=== PATIENT | male | born 1950 ===

== ENCOUNTER 2021-07-16 21:05 | Inpatient (IN) | payer OTHER, MEDICARE ==
[~2021-07-16] VITALS: Ht 172.7 cm; Wt 88.2 kg
[2021-07-16 22:13] LABS: BASO % 0.2 % (0.0-2.0); GRAN # 3.3 K/mm3 (1.4-6.5); GRAN % 76.6 % (42.2-75.2); HEMOGLOBIN 14.8 g/dl (13.5-18.0); LYMPH # 0.6 K/mm3 (1.2-3.4); LYMPH % 12.9 % (20.0-51.0); MEAN CELL VOLUME 87 fl (80.0-100.0); MEAN CORPUSCULAR HEMOGLOBIN 30 pg (27-31); MEAN CORPUSCULAR HGB CONC 34 g/dl (33.0-37.0); MEAN PLATELET VOLUME 10.9 fl (7.4-10.4); MONO # 0.4 K/mm3 (0.1-0.6); MONO % 9.8 % (1.7-9.3); PLATELET COUNT 101 K/mm3 (130-400); RED BLOOD COUNT 4.93 M/mm3 (4.20-5.60); REDCELL DISTRIBUTION WIDTH-CV 12.1 % (11.5-14.5)
[2021-07-16 22:39] LABS: ALANINE AMINOTRANSFERASE 10 U/L (0-55); ALBUMIN 3.7 gm/dL (3.4-4.8); ALKALINE PHOSPHATASE 63 U/L (40-150); ANION GAP 12 mmol/L (7-16); AST,SGOT 21 U/L (5-34); BILIRUBIN,TOTAL 0.9 mg/dL (0.2-1.2); BLOOD UREA NITROGEN 12 mg/dL (8-26); CALCIUM 10.5 mg/dL (8.4-10.2); CARBON DIOXIDE 21 mmol/L (23-31); CHLORIDE 101 mmol/L (98-107); CREATININE, serum 1.23 mg/dL (0.72-1.25); GLUCOSE 193 mg/dL (70-99); LIPASE 36 U/L (8-78); POTASSIUM 3.9 mmol/L (3.5-4.5); SODIUM 134 mmol/L (136-145); TOTAL PROTEIN 7.6 gm/dL (6.2-8.1)
[2021-07-16 22:42] LABS: TROPONIN-I < 0.010 ng/mL (0.00-0.033)
[2021-07-17 02:31] LABS: COLLECTION METHOD CLEAN CATCH
[2021-07-17 02:43] LABS: MUCOUS Present (NOT PRESENT); PH 5 (5-8); SQUAMOUS EPITHELIAL 0-2 /hpf (0-10); URINE APPEARANCE Clear (CLEAR/HAZY); URINE BACTERIA None Seen /hpf (NONE SEEN); URINE BILIRUBIN Negative (NEGATIVE); URINE BLOOD Negative (NEGATIVE); URINE COLOR Yellow (YELLOW); URINE GLUCOSE Negative (NEGATIVE); URINE KETONE 1+ (NEGATIVE); URINE LEUKOCYTE ESTERASE Negative (NEGATIVE); URINE NITRATE Negative (NEGATIVE); URINE PROTEIN(semi-quant) 1+ (NEGATIVE); URINE RBC 0-2 /hpf (0-2); URINE UROBILINOGEN >=4.0 (NEGATIVE)
[2021-07-17 02:48] LABS: ARTERIAL BLD GAS TCO2 CT 28.2; ARTERIAL BLOOD GAS BASE EXCESS 2.4 (-2-2); ARTERIAL BLOOD GAS HCO3 26.9 meq/L (22-26); ARTERIAL BLOOD GAS PCO2 41.4 mmHg (35-45); ARTERIAL BLOOD GAS PO2 89.3 mmHg (80-100); ARTERIAL BLOOD GAS pH 7.43 (7.35-7.45)
[2021-07-17 03:29] LABS: C-REACTIVE PROTEIN 5.5 mg/dL (0.00-0.50); MAGNESIUM 1.7 mg/dL (1.6-2.6)
[2021-07-17 03:30] LABS: INR 1.1 (0.8-3.0); PROTHROMBIN TIME 12.7 SECONDS (9.7-12.8)
[2021-07-17] MEDS ORDERED: PROTONIX 40MG T40 MG PO (03:43)
[2021-07-17] MEDS ORDERED: VITAMIN B12 781 TAB PO (03:44)
[2021-07-17] MEDS ORDERED: CALCIUM 600MG+D1 TAB PO (03:44)
[2021-07-17] MEDS ORDERED: NEURONTIN300 MG/CAP PO (03:44)
[2021-07-17] MEDS ORDERED: MULTI VITAMINS1 TAB PO (03:45)
[2021-07-17] MEDS ORDERED: OMEGA-3 1000 MG1 CAP PO (03:45)
[2021-07-17] MEDS ORDERED: CELEXA 20MG20 MG/TAB PO (03:45)
[2021-07-17] MEDS ORDERED: STOOL SOFTENER100 M2 PO (03:45)
[2021-07-17] MEDS ORDERED: FLOMAX 0.40.4 MG/CAP PO (03:46)
[2021-07-17] MEDS ORDERED: DESYREL 100MG100 MG PO (03:46)
[2021-07-17] MEDS ORDERED: CRESTOR40 MG PO (03:46)
[2021-07-17 10:45] VITALS: BP 121/69; PULSE 75
--- NOTE | 2021-07-17 13:00 | NUR ---
Restaurant Hourly Manager contacted patient's daughter, Pooja (ph#[phone]) to complete initial intake as patient is in COVID isolation and is awaiting a bed on the medical floor. Patient lives in [place] with his daughter, Pooja and goes to the [facility] for primary care, but also utilizes the [facility] as needed. Patient has his medications mailed to him by the [facility] and normally doesn't use any DME but has a walking stick. Pooja advised that patient is normally independent with ADLS but does need some prompting with bathing. Patient does not have Advance Directives. Per Pooja, patient is and has three children: Pooja, Dominick, and Neo. Pooja advised plan is for patient to return home upon discharge. PT/OT ordered. Discharge Plan: Home with Family, pending PT/OT evaluations.
[2021-07-17 14:40] VITALS: BP 128/70; PULSE 63; TEMP 99.2
--- NOTE | 2021-07-17 15:15 | NUR ---
UPDATED PATIENT'S DAUGHTERHUMBERTO REGARDING PATIENT'S STATUS.
--- NOTE | 2021-07-17 16:12 | NUR ---
CALLED CONSULT TO INFECTIOUS DISEASE.
[2021-07-17 17:22] VITALS: BP 122/67; PULSE 63; TEMP 98.7
[2021-07-17 20:17] VITALS: BP 138/77; PULSE 73; TEMP 98.3
--- NOTE | 2021-07-17 20:30 | NUR ---
Patient is alert and oriented, VSS, denies pain, nausea or vomiting. 1.5 L 02 NC. Intermitent shaking. Tele in place NSR. NS running at 75 ML /HR. Denies sputum production. Assessment completed, medications provided. No further needs at this time. Call light within reach. Bed alarm on.
[2021-07-18] VITALS (8 sets, daily range): BP systolic 104–148; BP diastolic 55–91; PULSE 56–100; TEMP 97.6–103.1
[2021-07-18 05:34] LABS: ALANINE AMINOTRANSFERASE 9 U/L (0-55); ALBUMIN 3.1 gm/dL (3.4-4.8); ALKALINE PHOSPHATASE 50 U/L (40-150); ANION GAP 9 mmol/L (7-16); AST,SGOT 22 U/L (5-34); BILIRUBIN,TOTAL 0.5 mg/dL (0.2-1.2); BLOOD UREA NITROGEN 16 mg/dL (8-26); CALCIUM 10.2 mg/dL (8.4-10.2); CARBON DIOXIDE 25 mmol/L (23-31); CHLORIDE 106 mmol/L (98-107); CREATININE, serum 1.15 mg/dL (0.72-1.25); GLUCOSE 133 mg/dL (70-99); SODIUM 140 mmol/L (136-145); TOTAL PROTEIN 6.5 gm/dL (6.2-8.1)
[2021-07-18 05:35] LABS: BASO % 0.3 % (0.0-2.0); GRAN % 78.4 % (42.2-75.2); HEMOGLOBIN 13.3 g/dl (13.5-18.0); LYMPH % 15.1 % (20.0-51.0); MEAN CELL VOLUME 87 fl (80.0-100.0); MEAN CORPUSCULAR HEMOGLOBIN 30 pg (27-31); MEAN CORPUSCULAR HGB CONC 34 g/dl (33.0-37.0); MONO # 0.4 K/mm3 (0.1-0.6); MONO % 5.4 % (1.7-9.3); PLATELET COUNT 109 K/mm3 (130-400); RED BLOOD COUNT 4.46 M/mm3 (4.20-5.60); REDCELL DISTRIBUTION WIDTH-CV 12.1 % (11.5-14.5)
[2021-07-18 05:42] LABS: TROPONIN-I < 0.010 ng/mL (0.00-0.033)
--- NOTE | 2021-07-18 05:59 | NUR ---
Patient has not been able to rest at night. VSS, but shaking and feeling cold. Continues with NS 75ML/HR, NSR, and 2 L O2 Nasal canula. Shift report will be given to day shift nurse.
--- NOTE | 2021-07-18 10:32 | NUR ---
PT SITTING UP IN BED. MORNING MEDICATIONS GIVEN. SHIFT ASSESSMENT COMPLETED. REPORTS PAIN IN RLQ. PT HAVING FULL BODY TREMORS AND UNSTEADY GAIT. PT ALERT AND ORIENTED. CURRENTLY ON 2.5L VIA [place]. WILL CONTINUE TO MONITOR.
--- NOTE | 2021-07-18 17:28 | NUR ---
PT TEMPERATURE ELEVATED TO 103.1 AROUND 1400 THIS AFTERNOON. TYLENOL GIVEN AND ICE BAGS APPLIED TO PT. TEMP CAME DOWN TO 98.6. WILL CONTINUE TO MONITOR.
--- NOTE | 2021-07-18 21:00 | NUR ---
Patient is resting in bed, alert and oriented x 4, denies pain, nausea or vomiting. He states he feels cold, warm blankets provided. VSS, Tele in place. NSR. 1L O2 NC. NS running at 75 ml/hr. Assessment completed, medications and hygiene provided. No other needs at this time. Call light within reach. Bed alarm on.
[2021-07-19 04:11] VITALS: BP 112/50; PULSE 76; TEMP 99
--- NOTE | 2021-07-19 06:28 | NUR ---
Patient moves around the bed while sleeping and moves NC. Rigth now at 4L O2 NC and sat 89-90%. Continues having incontinent episodes. Hygiene provided. Report will be given to brandt OTT.
[2021-07-19 08:44] VITALS: BP 120/57; PULSE 83; TEMP 100.3
--- NOTE | 2021-07-19 11:13 | NUR ---
PT RESTING IN BED. MORNING MEDICATIONS GIVEN. SHIFT ASSESSMENT COMPLETED. PICC LINE FLUSHES AND HAS GOOD BLOOD RETURN. PT STATES HE IS FEELING MUCH BETTER TODAY AND IS ABLE TO JOKE AND HAVE CONVERSATION. O2 CURRENTLY AT 2L NC. CONTINUING TO MONITOR.
[2021-07-19 12:01] VITALS: BP 124/46; PULSE 58; TEMP 98.5
[2021-07-19 14:52] LABS: BASO % 0.2 % (0.0-2.0); GRAN # 5.2 K/mm3 (1.4-6.5); GRAN % 84.2 % (42.2-75.2); HEMOGLOBIN 12.2 g/dl (13.5-18.0); LYMPH # 0.6 K/mm3 (1.2-3.4); LYMPH % 9.4 % (20.0-51.0); MEAN CELL VOLUME 89 fl (80.0-100.0); MEAN CORPUSCULAR HEMOGLOBIN 30 pg (27-31); MEAN CORPUSCULAR HGB CONC 33 g/dl (33.0-37.0); MEAN PLATELET VOLUME 10.9 fl (7.4-10.4); MONO # 0.4 K/mm3 (0.1-0.6); MONO % 5.6 % (1.7-9.3); PLATELET COUNT 117 K/mm3 (130-400); RED BLOOD COUNT 4.09 M/mm3 (4.20-5.60); REDCELL DISTRIBUTION WIDTH-CV 12.5 % (11.5-14.5)
[2021-07-19 14:55] LABS: HEMATOCRIT 36.5 % (42.0-52.0)
[2021-07-19 15:09] LABS: ALBUMIN 2.7 gm/dL (3.4-4.8); BILIRUBIN,TOTAL 0.5 mg/dL (0.2-1.2); CALCIUM 9.9 mg/dL (8.4-10.2); CREATININE, serum 1.36 mg/dL (0.72-1.25); POTASSIUM 4.1 mmol/L (3.5-4.5)
[2021-07-19 17:00] VITALS: BP 122/58; PULSE 48; TEMP 97.9
[2021-07-19 19:41] VITALS: BP 117/61; PULSE 46; TEMP 97.8
--- NOTE | 2021-07-19 21:00 | NUR ---
Patient is sleeping in bed, continues bradycardic. The rest of VSS. 4L O2 NC. States it is cold, warm blanket provided and increased temp in room. Assessment completed, medications provided. No further needs at this time. Call light within reach.
[2021-07-19 23:53] VITALS: BP 107/46; PULSE 44; TEMP 98.7
[2021-07-20] VITALS (7 sets, daily range): BP systolic 107–127; BP diastolic 47–66; PULSE 50–77; TEMP 98–99.1
--- NOTE | 2021-07-20 05:55 | NUR ---
Pt has been resting along the night. His linens and gown were changed since he was sweating a lot. Continues with some episodes of low HR. Right now in 70's. Report will be given to day RN.
--- NOTE | 2021-07-20 10:00 | NUR ---
PT RESTING IN BED THIS MORNING, FEELING BETTER. MORNING MEDICATIONS GIVEN. SHIFT ASSESSMENT COMPLETED. PT DIAPHORETIC AND RUNNING A TEMP, TYLENOL GIVEN PER SEP. HELPED PT INTO THE SHOWER. PICC LINE FLUSHES AND HAS GOOD BLOOD RETURN. IS CURRENTLY ON 4L VIA [place]. WILL CONTINUE TO MONITOR.
--- NOTE | 2021-07-20 21:27 | NUR ---
Patient awake in bed. Patient alert and oriented. Patient denies pain or SO B. Patient currently on 3L oxyen via NC. Breathing even and unlabored. VS stable. Patient reports some headache and requesting Tylenol. PRN Tylenol given. All scheduled meds given per SEP. NS currently running at 50ml/hr per SEP. Call light in reach. Will continue to monitor.
[2021-07-21 04:15] VITALS: BP 113/53; PULSE 59; TEMP 98.1
--- NOTE | 2021-07-21 04:35 | NUR ---
Patient on room air this morning. SPO2 93% on room air around 4am. Patient resting in bed with eyes closed. No acute respiratory distress noted. VS remains stable throughout the night. Call light in reach. Bed alarms on. Will continue to monitor.
[2021-07-21 08:22] VITALS: BP 143/51; PULSE 63; TEMP 98.1
--- NOTE | 2021-07-21 10:49 | NUR ---
Scheduled medications given. Shift assessment performed. PICC line in place on RUU. Able to flush, no blood return noted. Tele informed this RN that patient had a 1.5 min run of SVT at 130. Patient states that he has substernal chest pain states that it just hurts. EKG ordered. Dr. Lester informed. Chest pain has since resolved and heart rate is currently in the upper 50's low 60's. Order placed for cathflo. Patient is A&Ox4. Gait is very unsteady. VSS. Patient currently requiring 2L of O2 via nasal cannula. Call light in reach. Fall percautions in place.
[2021-07-21 11:37] VITALS: BP 119/61; PULSE 51; TEMP 98.1
[2021-07-21 13:30] LABS: HEMOGLOBIN 12.1 g/dl (13.5-18.0); MEAN CELL VOLUME 87 fl (80.0-100.0); MEAN CORPUSCULAR HEMOGLOBIN 30 pg (27-31); MEAN CORPUSCULAR HGB CONC 34 g/dl (33.0-37.0); MEAN PLATELET VOLUME 10.8 fl (7.4-10.4); PLATELET COUNT 155 K/mm3 (130-400); RED BLOOD COUNT 4.03 M/mm3 (4.20-5.60); REDCELL DISTRIBUTION WIDTH-CV 12.5 % (11.5-14.5)
[2021-07-21 13:31] LABS: HEMATOCRIT 35.2 % (42.0-52.0)
[2021-07-21 13:45] LABS: CALCIUM 9.3 mg/dL (8.4-10.2); CREATININE, serum 0.9 mg/dL (0.72-1.25); MAGNESIUM 1.5 mg/dL (1.6-2.6); POTASSIUM 3.4 mmol/L (3.5-4.5)
[2021-07-21 13:48] LABS: BAND 10 % (0-10); LYMPHOCYTE 16 % (20.0-51.0); NEUTROPHILS 68 % (42.0-75.2); PLATELET ESTIMATE NORMAL (NORMAL)
[2021-07-21 15:21] VITALS: BP 120/52; PULSE 63; TEMP 98.3
--- NOTE | 2021-07-21 17:51 | NUR ---
Patient has had an ok day. Cathflo used in purple and red ports. Both ports are flushing well with good blood return. Patient currently requiring 2L of O2 via nasal cannula. Denies any pain, discomfort, SOA, or further needs at this time. Call light in reach. Fall percautions in place. VSS. Patient A&O.
[2021-07-21 20:52] VITALS: BP 123/67; PULSE 62; TEMP 98.2
--- NOTE | 2021-07-21 23:24 | NUR ---
Patient assessed. Patient A/Ox3. Patient denies any pain, SOB, N/V or diarrhea. Patient currently on 3L oxygen via NC. Breathing even and unlabored while at rest. No apparent distress noted. All scheduled meds given per SEP. Assisted patient to use bathroom to void. Stand-by assist provided. Call light in reach. Will continue to monitor.
[2021-07-22] VITALS (7 sets, daily range): BP systolic 121–166; BP diastolic 52–69; PULSE 50–67; TEMP 97.9–98.5
[2021-07-22 09:47] LABS: HEMATOCRIT 40.5 % (42.0-52.0); MEAN CELL VOLUME 83 fl (80.0-100.0); MEAN CORPUSCULAR HEMOGLOBIN 29 pg (27-31); MEAN CORPUSCULAR HGB CONC 35 g/dl (33.0-37.0); MEAN PLATELET VOLUME 10.6 fl (7.4-10.4); PLATELET COUNT 219 K/mm3 (130-400); RED BLOOD COUNT 4.88 M/mm3 (4.20-5.60)
[2021-07-22 10:04] LABS: CALCIUM 9.1 mg/dL (8.4-10.2); CREATININE, serum 0.84 mg/dL (0.72-1.25); POTASSIUM 4.5 mmol/L (3.5-4.5)
[2021-07-22 10:21] LABS: BAND 11 % (0-10); EOSINOPHIL 5 % (0-4); LYMPHOCYTE 22 % (20.0-51.0); METAMYELOCYTE 1 % (0-0); NEUTROPHILS 58 % (42.0-75.2); PLATELET ESTIMATE NORMAL (NORMAL)
--- NOTE | 2021-07-22 11:23 | NUR ---
Scheduled medication given. Shift assessment performed. Patient currently requiring 2L of O2 via nasal cannula. Initially patient was drowsy and confused, but is now A&Ox4. PICC line in place in patient's RUE. Both ports flush with good blood return. Patient denies any pain, discomfort, SOA, or further needs at this time. VSS. Call light in reach. Fall percautions in place.
--- NOTE | 2021-07-22 14:14 | NUR ---
The hospitalist notified SALLY that he will be ready to discharge the patient tomorrow. The hospitalist states that he talked to the patient about home health and the patient is agreeable to home health. SALLY attempted to contact the patient to review the plan. He did not answer. SALLY then contacted the patient's daughter, Stacia, and updated her on the above. Stacia is in agreement to the plan and about home health. She did not have a preference on home health agency and was agreeable to use [facility]. SALLY attempted to contact Marisel at [facility]. SALLY left her a voicemail and faxed over the referral. Awaiting screen. *Discharge plan: home with daughter and home health*
--- NOTE | 2021-07-22 18:06 | NUR ---
Patient has had an uneventful day. Currently requiring 1L of O2 via nasal cannula. Denies any pain, discomfort, SOA, or further needs at this time. VSS. Patient A&O. Call light in reach. Fall percautions in place.
--- NOTE | 2021-07-22 21:37 | NUR ---
Patient assessed. Patient resting in bed with eyes closed upon enter the room. Patient easily awake with voice. Patient A/Ox3. Patient denies any pain or SOB. Denies N/V or diarrhea. Patient currently on 1L oxygen via NC. Breathing even and unlabored. VS stable. All scheduled meds given per SEP. Assisted patient to use bathroom to void. Stand-by assist provided. Ice-water provided per patient request. Call light in reach. Will continue to monitor.
[2021-07-23 03:49] VITALS: BP 131/62; PULSE 51; TEMP 97.8
[2021-07-23 06:48] LABS: HEMOGLOBIN 12.3 g/dl (13.5-18.0); MEAN CELL VOLUME 87 fl (80.0-100.0); MEAN CORPUSCULAR HEMOGLOBIN 30 pg (27-31); MEAN CORPUSCULAR HGB CONC 34 g/dl (33.0-37.0); MEAN PLATELET VOLUME 11.1 fl (7.4-10.4); PLATELET COUNT 213 K/mm3 (130-400); RED BLOOD COUNT 4.17 M/mm3 (4.20-5.60); REDCELL DISTRIBUTION WIDTH-CV 12.3 % (11.5-14.5)
[2021-07-23 06:52] LABS: HEMATOCRIT 36.3 % (42.0-52.0)
[2021-07-23 06:57] LABS: C-REACTIVE PROTEIN 3.37 mg/dL (0.00-0.50); CALCIUM 9.6 mg/dL (8.4-10.2); CREATININE, serum 0.98 mg/dL (0.72-1.25); POTASSIUM 3.5 mmol/L (3.5-4.5)
[2021-07-23 07:28] VITALS: BP 116/51; PULSE 50; TEMP 98.6
[2021-07-23 09:05] LABS: BAND 5 % (0-10); LYMPHOCYTE 24 % (20.0-51.0); NEUTROPHILS 65 % (42.0-75.2); PLATELET ESTIMATE NORMAL (NORMAL)
[2021-07-23 11:09] VITALS: BP 132/63; PULSE 65; TEMP 98.7
[2021-07-23] MEDS ORDERED: DECADRON6 MG PO (11:36)
--- NOTE | 2021-07-23 11:38 | NUR ---
Marisel, at [facility], reports that they are able to accept the patient for services. An exercise oximetry was ordered. RT notified SW that the patient qualified for 2 liters of oxygen. The patient is to tentatively discharge today. SW contacted the patient's daughter, Stacia, to update. Stacia is open to getting the oxygen through any local DME company that is able to deliver the equipment up to the hospital. SW read the IM form outloud to Stacia over the phone. Stacia verbalized understanding and gave SW approval to sign the form on her behalf. SW contacted and faxed the oxygen order to Manuel at [facility]. Awaiting delivery of oxygen.
--- NOTE | 2021-07-23 13:23 | NUR ---
Manuel, at [facility], contacted SALLY. Manuel reports that since the patient's primary [facility] is the [facility], that we would have to go through the [facility] to obtain the oxygen. SALLY contacted Allen Tena at the [facility]. Allen reports that they would be able to deliver oxygen to the patient's room today, so that he can discharge. SALLY faxed the patient's order to Allen at the [facility]. SALLY contacted and updated the patient's daughter, Stacia, on the above. She was agreeable with getting the oxygen through the [facility]. Awaiting delivery of the oxygen. SALLY updated the patient's RN.
--- NOTE | 2021-07-23 16:37 | NUR ---
Allen, at the [facility], reports that the oxygen is coming from [place] and they will be delivering the oxygen to the patient's room within two hours. SALLY notified the patient's RN. SALLY contacted and updated the patient's daughter, Stacia. The patient is to discharge back home with her daughter today, 07/23, with home health services for mcc/PT/OT from [facility]. SALLY notified and faxed orders to Marisel at [facility]. No additional needs at this time.
--- NOTE | 2021-07-23 18:33 | NUR ---
Scheduled medications given. Shift assessment performed. Patient deemed fit for discharge. Patient will be going home on 2L of O2 provided by the [facility]. VSS. Patient A&O. Discharge education/instructions given. Patient denies any pain, discomfort, SOA, or further needs at this time. Patient escorted from building by [facility] staff via wheelchair. Daughter transporting home. All questions answered.
== END 2021-07-23 18:00 | disposition home health service (06) | DRG 177 ==
LOC: COL.ER 21:05 → MEDICAL 07-17 02:15
PROVIDERS: Emergency Medicine; Internal Medicine; Nurse Practitioner Family; Physician Assistant; ADMIT Student in an Organized Health Care Education/Training Program
PROC: 02HV33Z Insertion of Infusion Device into Superior Vena Cava, Percutaneous Approach (ICD-10-PCS; principal; 2021-07-17)
PROC: XW043E5 Introduction of Remdesivir Anti-infective into Central Vein, Percutaneous Approach, New Technology Group 5 (ICD-10-PCS; 2021-07-17)
DX: U07.1 COVID-19 (principal); J96.01 Acute respiratory failure with hypoxia; J12.82 Pneumonia due to coronavirus disease 2019; R65.10 Systemic inflammatory response syndrome (SIRS) of non-infectious origin without acute organ dysfunction; G93.40 Encephalopathy, unspecified; E87.1 Hypo-osmolality and hyponatremia; E87.2 Acidosis; F31.9 Bipolar disorder, unspecified; N40.0 Benign prostatic hyperplasia without lower urinary tract symptoms; R00.0 Tachycardia, unspecified; D69.6 Thrombocytopenia, unspecified; N32.0 Bladder-neck obstruction; E83.52 Hypercalcemia; R73.03 Prediabetes; G89.29 Other chronic pain; R07.9 Chest pain, unspecified; S00.11XA Contusion of right eyelid and periocular area, initial encounter; W19.XXXA Unspecified fall, initial encounter; Y92.009 Unspecified place in unspecified non-institutional (private) residence as the place of occurrence of the external cause; E78.5 Hyperlipidemia, unspecified; R53.81 Other malaise; R29.6 Repeated falls; Z87.891 Personal history of nicotine dependence
CPT/HCPCS: 99223-AI; 99232-AI; 99233-AI; 99239; C1751; J0696; J1100; J1650; J1815; J2997; J7030; J7040; J7050; Q9967

== ENCOUNTER 2021-10-24 09:53 | Emergency (ER) | payer MEDICARE ==
[~2021-10-24] VITALS: Ht 170.2 cm; Wt 90.9 kg
[~2021-10-24 09:53] MED LIST: CALCIUM 600MG+D1 TAB PO; CELEXA 20MG20 MG/TAB PO; CRESTOR40 MG PO; DECADRON6 MG PO; DESYREL 100MG100 MG PO; FLOMAX 0.40.4 MG/CAP PO; MULTI VITAMINS1 TAB PO; NEURONTIN300 MG/CAP PO; OMEGA-3 1000 MG1 CAP PO; PROTONIX 40MG T40 MG PO; STOOL SOFTENER100 M2 PO; VITAMIN B12 781 TAB PO
[2021-10-24 09:58] VITALS: BP 145/77; TEMP 97.8
[2021-10-24] MEDS ORDERED: AMOXICILLIN 50500 MG PO (11:17)
[2021-10-24] MEDS ORDERED: NORCO 325 MG-51 TAB PO (11:17)
[2021-10-24 11:21] VITALS: PULSE 75
== END 2021-10-24 11:21 | disposition home or self-care (01) ==
LOC: COL.ER 09:53
DX: K02.9 Dental caries, unspecified (principal); Z87.891 Personal history of nicotine dependence; Z86.16 Personal history of COVID-19

== ENCOUNTER 2023-06-23 17:07 | Inpatient (IN) | payer OTHER ==
[~2023-06-23] VITALS: Ht 172.7 cm; Wt 88.2 kg
[~2023-06-23 17:07] MED LIST changes: +AMOXICILLIN 50500 MG PO; +JARDIANCE25 PO; +NORCO 325 MG-51 TAB PO; +OS-CAL 500 + D1 TAB PO
[2023-06-23 18:52] LABS: COLLECTION METHOD CLEAN CATCH
[2023-06-23 19:11] LABS: PH 5.5 (5.0-8.5); SQUAMOUS EPITHELIAL 0-2 /hpf (0-10); URINE APPEARANCE Clear (CLEAR/HAZY); URINE BLOOD Negative (NEGATIVE); URINE COLOR Straw (YELLOW); URINE GLUCOSE 3+ (NEGATIVE); URINE KETONE Negative (NEGATIVE); URINE NITRATE Negative (NEGATIVE); URINE PROTEIN(semi-quant) Negative (NEGATIVE); URINE RBC None Seen /hpf (0-2); URINE UROBILINOGEN 0.2 E.U/dL (0.2-1.0)
[2023-06-23 19:12] LABS: URINE BACTERIA None Seen /hpf (NONE SEEN)
[2023-06-23 19:21] LABS: BASO # 0.1 K/mm3 (0.0-0.2); BASO % 0.5 % (0.0-2.0); EOS % 0.4 % (0.0-4.0); GRAN % 77.8 % (42.2-75.2); HEMOGLOBIN 12.7 g/dl (13.5-18.0); LYMPH # 1.4 K/mm3 (1.2-3.4); LYMPH % 13.3 % (20.0-51.0); MEAN CELL VOLUME 86 fl (80.0-100.0); MEAN CORPUSCULAR HEMOGLOBIN 30 pg (27-31); MEAN CORPUSCULAR HGB CONC 35 g/dl (33.0-37.0); MEAN PLATELET VOLUME 9.6 fl (7.4-10.4); MONO # 0.8 K/mm3 (0.1-0.6); MONO % 7.6 % (1.7-9.3); PLATELET COUNT 212 K/mm3 (130-400); RED BLOOD COUNT 4.19 M/mm3 (4.20-5.60); REDCELL DISTRIBUTION WIDTH-CV 12.1 % (11.5-14.5)
[2023-06-23 19:32] LABS: HEMATOCRIT 36.1 % (42.0-52.0)
[2023-06-23 19:37] LABS: ALBUMIN 3.9 gm/dL (3.4-4.8); BILIRUBIN,TOTAL 0.6 mg/dL (0.2-1.2); C-REACTIVE PROTEIN 3.48 mg/dL (0.00-0.50); CREATININE, serum 2.67 mg/dL (0.72-1.25)
[2023-06-23] MEDS ORDERED: JARDIANCE25 PO (21:47)
[2023-06-23] MEDS ORDERED: MILK OF MA400 MG/52 PO (21:49)
[2023-06-23] MEDS ORDERED: Rosuvastatin 40 MG **** subs to Atorvastatin 80 MG PO SCH (22:06)
--- NOTE | 2023-06-23 22:15 | NUR ---
RECEIVED REPORT FROM Aman CLEVELAND. AWAITING PATIENT ARRIVAL TO ROOM 344 FOR ADMIT TO UNIT. LAB CALLED WITH CRITICAL TROPONIN, INFORMED ONCALL HOSP PROVIDER OF CRITICAL TROPONIN LEVEL, NO ORDERS GIVEN AT TIME OF CALL.
[2023-06-23] MEDS ORDERED: Heparin 5,000 UNITS/ML 1 ML VIAL SQ SCH (22:19)
[2023-06-23] MEDS ORDERED: Sennosides/Docusate 8.6-50 MG TAB PO SCH (22:20)
[2023-06-23] MEDS ORDERED: Acetaminophen 325 MG TAB PO PRN (22:30)
[2023-06-23] MEDS ORDERED: Morphine 4 MG/ML VIAL IV PRN (22:30)
[2023-06-23] MEDS ORDERED: 1/2 NS & 20 mEq KCl 1,000 ML IV SCH (22:30)
[2023-06-23] MEDS ORDERED: Ondansetron 4 MG/2 ML VIAL IV PRN (22:30)
[2023-06-23] MEDS ORDERED: Insulin Aspart (NovoLOG) SQ SCH ×2 (22:34)
[2023-06-23] MEDS ORDERED: Polyethylene Glycol 3350 17 GM PDS PO ONE (23:00)
[2023-06-23 23:14] VITALS: BP 157/79; PULSE 82; TEMP 98.6
--- NOTE | 2023-06-23 23:15 | NUR ---
PATIENT ARRIVED TO UNIT, ADMITTED TO ROOM 344 PER E.D. CART, TRANSPORTED BY [employer] TECH. PATIENT ON TELE, DENIES CHEST PAIN, SOA. SEE ADMISSION DOCUMENTION. MOBLEY DRAINING CLEAR YELLOW URINE, OBSERVED NO CLOTS IN TUBING.
[2023-06-23] MEDS ORDERED: Dextrose 50% Water 25 GM/50 ML SYRINGE IV PRN (23:30)
[2023-06-23] MEDS ORDERED: traZODone 100 MG TAB PO SCH (23:30)
[2023-06-23] MEDS ORDERED: Dextrose (Glucose) 15 GM (4 x 3.75 GM) Chewable TABLET PACK PO PRN (23:30)
[2023-06-23] MEDS ORDERED: Glucagon 1 MG VIAL IM PRN (23:30)
[2023-06-23] MEDS ORDERED: Heparin 5,000 UNITS/ML 1 ML VIAL IV PRN (23:45)
[2023-06-23] MEDS ORDERED: Heparin 5,000 UNITS/ML 1 ML VIAL IV ONE (23:45)
[2023-06-23] MEDS ORDERED: Heparin/D5W 250 ML IV SCH (23:45)
--- NOTE | 2023-06-23 23:45 | NUR ---
LAB CALLED WITH CRITICAL TROP LEVEL OF 0.079. CRITICAL TROP LEVEL CALLED TO ONCALL PROVIDER WITH ORDERS TO BE ENTERED BY PROVIDER.
[2023-06-24] VITALS (23 sets, daily range): BP systolic 134–171; BP diastolic 65–86; PULSE 59–79; TEMP 97.8–98.9
[2023-06-24 00:34] LABS: PARTIAL THROMBOPLASTIN TIME 30.1 SECONDS (26.0-37.0)
--- NOTE | 2023-06-24 01:00 | NUR ---
HEPARIN BOLUS OF 4000 UNITS GIVEN IV PUSH PER PROVIDER'S ORDER WITH HEPARIN INFUSION SET AT 1000 U/HR PER PROVIDER ORDER, FOLLOWING LOW DOSE HEPARIN PROTOCOL. SEE MAR.
--- NOTE | 2023-06-24 01:15 | NUR ---
OBSERVED BLOODY URINE IN MOBLEY TUBING, INFORMED ONCALL PROVIDER OF BLOODY URINE, NO CHANGE IN ORDERS AT THIS TIME. HEPARIN CONTINUES.
[2023-06-24] MEDS ORDERED: Polyethylene Glycol 3350 17 GM PDS PO ONE (01:45)
--- NOTE | 2023-06-24 05:30 | NUR ---
PER TELE REPORTS HEART RHYTHM SHOWING ST ELEVATION, VS TAKEN, PROVIDER CALLED, REPORTED OBSERVED URINE OUTPUT RED SEDIMENT, PATIENT CONTINUES TO DENY CHEST PAIN/SOA, SKIN WARM AND DRY TO TOUCH WITH SKIN COLOR UNCHANGED FROM EARLIER ASSESSMENT. PROVIDER WANTING SCHEDULED AM LABS DONE NOW, EXCEPT HEP XA AND GET STAT EKG, R.T. CALLED.
--- NOTE | 2023-06-24 05:51 | NUR ---
CONTACTED DR CORBETT FOR CARDIOLOGY CONSULT PER HOSP PROVIDER ORDER, INFORMED OF RHYTHM CHANGES, ORDERS FOR EKG AND LABS TO BE DONE NOW, ORDERS GIVEN TO NITRO PATCH, SEE [facility] FOR ORDERS AND FOR HOSP TO READ EKG AND IF HAS ST E[facility] TO HAVE PATIENT SHIPPED OUT. INFORMED HOSPITALIST OF DRY END TESTER REC PER PHONE. NO OTHER ORDERS GIVEN AT TIME OF CALL WITH [facility].
[2023-06-24] MEDS ORDERED: Nitroglycerin 0.4 MG/HR DAILY PATCH TD ONE (06:00)
[2023-06-24 06:54] LABS: MAGNESIUM 2.2 mg/dL (1.6-2.6)
--- NOTE | 2023-06-24 06:55 | NUR ---
CHANGE OF SHIFT REPORT GIVEN TO DAY SHIFT RNALBANIA. PATIENT RESTING IN BED, BREATHING NONLABORED AND EVEN , TELE IN PLACE. IV FLUIDS INFUSING WITH NO PROBLEMS X2 IV SITES. MOBLEY TO DD WITH BLOOD TINGED SEDIMENT IN TUBING, NO CLOTS OBSERVED AT THIS TIME. BED EXIT ALARM ON WITH CALL LIGHT IN REACH.
[2023-06-24 07:12] LABS: THYROID STIMULATING HORMONE 0.568 uIU/mL (0.350-4.940)
[2023-06-24 07:36] LABS: TROPONIN-I 0.062 ng/mL (0.00-0.033)
--- NOTE | 2023-06-24 08:00 | NUR ---
PATIENT IS ORIENTED BUT DROWSY THIS AM. VSS ON TELE. TUBE BUILDING MACHINE OPERATOR REPORTED ST ELEVATION OVER NIGHT AND CARDIOLOGY WAS CONSULTED. PATIENT MAY POSSIBLY BE TRANSFERED TODAY. NO ACTIVE CHEST PAIN. NITRO PATCH INPLACE. HEPARIN GTT INFUSING AT 10CC/HR INTO RIGHT HAND IV VIA PUMP. IV FLUIDS INFUSING VIA PUMP INTO LEFT HAND IV. AM LABS PENDING. NPO. AM BS 126, NO SSI REQUIRED. MOBLEY TO DD WITH MOD AMOUNTS OF BLOOD-TINGED URINE NOTED WITH OCCATIONAL SEDIMENT. PATIENT HAS EXTENSIVE UROLOGY HX, SEE UROLOGY CONSULT. HEAD TO TOE ASSESSMENT COMPLETE. NO OTHER NEEDS AT THIS TIME. CALL LIGHT IN REACH. BED ALARM ON. PATIENT SLEEPING
--- NOTE | 2023-06-24 08:45 | NUR ---
UROLOGY AT BEDSIDE. URINE INCREASING IN BLOOD DUE TO HEPARIN GTT AND HX OF LARGE PROSTATE, SEE UROLOGY NOTES. PATIENT MAY REQUIRE A THREE-WAY MOBLEY WITH IRRIGATION. WILL MONITOR.
[2023-06-24] MEDS ORDERED: Omega-3 Fatty Acid Esters (OTC) 1,000 MG CAP PO SCH (09:00)
[2023-06-24] MEDS ORDERED: Citalopram 20 MG TAB PO SCH (09:00)
--- NOTE | 2023-06-24 09:12 | NUR ---
LAB NOW AT BEDSIDE TO DRAW NEW LABS ORDERED BY CARDIOLOGY
[2023-06-24] MEDS ORDERED: *Potassium Replacement Protocol MC SCH (09:45)
[2023-06-24 10:02] LABS: ALBUMIN 3.4 gm/dL (3.4-4.8); BILIRUBIN,TOTAL 0.7 mg/dL (0.2-1.2); CALCIUM 12.4 mg/dL (8.4-10.2); CREATININE, serum 2.2 mg/dL (0.72-1.25); POTASSIUM 3.4 mmol/L (3.5-4.5); TOTAL PROTEIN 6.9 gm/dL (6.2-8.1)
[2023-06-24 10:25] LABS: BASO # 0.1 K/mm3 (0.0-0.2); BASO % 0.8 % (0.0-2.0); EOS # 0.1 K/mm3 (0.0-0.7); EOS % 1.2 % (0.0-4.0); GRAN % 64.2 % (42.2-75.2); HEMOGLOBIN 11.7 g/dl (13.5-18.0); LYMPH # 1.9 K/mm3 (1.2-3.4); LYMPH % 25.1 % (20.0-51.0); MEAN CELL VOLUME 87 fl (80.0-100.0); MEAN CORPUSCULAR HEMOGLOBIN 30 pg (27-31); MEAN CORPUSCULAR HGB CONC 34 g/dl (33.0-37.0); MEAN PLATELET VOLUME 10.2 fl (7.4-10.4); MONO # 0.6 K/mm3 (0.1-0.6); MONO % 8.1 % (1.7-9.3); PLATELET COUNT 198 K/mm3 (130-400); RED BLOOD COUNT 3.94 M/mm3 (4.20-5.60); REDCELL DISTRIBUTION WIDTH-CV 12.3 % (11.5-14.5)
[2023-06-24 10:27] LABS: HEMATOCRIT 34.1 % (42.0-52.0)
[2023-06-24] MEDS ORDERED: Potassium Chloride 100 ML IV SCH (10:45)
--- NOTE | 2023-06-24 11:10 | NUR ---
URINE IS STILL BLOODY, CHIN RED IN COLOR. NOTED A FEW SMALL, STRING LIKE CLOTS. IRRIGATED PRN. MOBLEY TO DD. PATIENT C/O DISCOMFORT AND REQUESTING SOMETHING OF PAIN, GIVEN.
--- NOTE | 2023-06-24 11:58 | NUR ---
Concrete Fence Builder met with Patient at bedside to conduct Care Managment Assessment and discuss discharge planning. Patient reports to lives in [place], [place] with his daughter and son. Patient states that he rec[facility] PCP, Incurance, and [facility]. Patient denies the use of DME and when asked about abmbulation prior to admission he states "I don't". Patient wass established with Home Health services when discharged from last admission three weeks ago. Patient states that his daughter, Dede is his DPOAHC. Patient is pending cardiology follow-up for further treatment plan guidance. Patient is recommended to transfer to another facility. PT/OT is ordered for eval.
--- NOTE | 2023-06-24 12:40 | NUR ---
PATIENT'S URINE IS FLOWING IN MOBLEY TUBING BUT IS NOW DARK BLOODY URINE WITH CLOTS NOTED, IRRIGATED PRN AGAIN. NOTIFIED UROLOGY TO SEE IF CBI WILL BE NEEDED
--- NOTE | 2023-06-24 13:00 | NUR ---
PLACED 20 GAUGE, 3-WAY MOBLEY WITH CBI INFUSING FAST. IRRIGATED A FEW MOD SIZE CLOTS AND MOBLEY IS DRAINING. HEPARIN GTT STILL INFUSING. NO PLAN FROM CARDIOLOGY YET. PATIENT STILL NPO.
--- NOTE | 2023-06-24 13:50 | NUR ---
CARDIOLOGY AT BEDSIDE. PLAN IS FOR HEART CATH IN APPROX 1 HOUR. NURSING TO CALL DAUGHTER WITH UPDATE. SEE ORDERS.
[2023-06-24] MEDS ORDERED: 1/2 NS 1,000 ML IV SCH ×2 (14:00→16:00)
[2023-06-24 14:08] LABS: INR 1.2 (0.8-3.0); PROTHROMBIN TIME 12.8 SECONDS (9.7-12.8)
[2023-06-24 14:11] LABS: PARTIAL THROMBOPLASTIN TIME 42.9 SECONDS (26.0-37.0)
--- NOTE | 2023-06-24 14:20 | NUR ---
PRODUCTION TROUBLESHOOTER AT BEDSIDE OBTAINING CONSENT AND ANSWERING QUESTIONS. NURSING INFORMED PRODUCTION TROUBLESHOOTER STAFF OF LEANDRA WITH CBI WELL HEPARIN GTT, IV POTASSIUM AND FLUIDS INFUSING INTO BILATERAL IV HAND SITES.
--- NOTE | 2023-06-24 14:50 | NUR ---
NURSING CALLED TO EMBEDDED SYSTEMS DESIGNER DUE TO PATIENT'S CBI STOP RUNNING AND MOBLEY ISN'T DRAINING URINE. RN WENT TO EMBEDDED SYSTEMS DESIGNER WITH IRRIGATION SUPPIES AND MANIPULATED MOBLEY & CBI, NOW INFUSING SLOW TO MOD DUE TO PATIENT'S FLAT POSITIONING. URINE IS LIGHT PINK WITH CBI. PATIENT WILL RETURN TO FLOOR AFTER RECOVERING IN EMBEDDED SYSTEMS DESIGNER, CATH WAS CLEAN AND RIGHT RADIAL BAND INPLACE.
[2023-06-24] MEDS ORDERED: fentaNYL 50 MCG/ML 2 ML VIAL IV SCH (15:15)
[2023-06-24] MEDS ORDERED: Midazolam 2 MG/2 ML VIAL IV SCH (15:18)
[2023-06-24] MEDS ORDERED: niCARdipine (Cath Lab) 100 MCG/ML 10 ML VIAL INCOR SCH (15:33)
[2023-06-24] MEDS ORDERED: Heparin 1,000 UNITS/ML 10 ML Multi-Dose VIAL IV SCH (15:36)
--- NOTE | 2023-06-24 15:50 | NUR ---
PATIENT BACK IN ROOM FROM HEART CATH. CATH WAS REPORTED CLEAN AND CARDIOLOGY AND HOSPITALIST BOTH SAID HEPARIN GTT CAN BE DC'D, NOW OFF. CBI INFUSING AT SLOW TO MOD RATE WITH LIGHT PINK URINE NOTED. NO COMPLAINTS. VSS. RIGHT RADIAL BAND INPLACE WITH 11CC OF AIR. PATIENT RESTING WITH CALL LIGHT IN REACH.
[2023-06-24] MEDS ORDERED: Insulin Aspart (NovoLOG) SQ SCH (17:00)
--- NOTE | 2023-06-24 18:00 | NUR ---
RELEASED 3CC OF AIR POST HEART CATH.
[2023-06-24 18:24] LABS: HEMOGLOBIN 11.6 g/dl (13.5-18.0); MEAN CELL VOLUME 89 fl (80.0-100.0); MEAN CORPUSCULAR HEMOGLOBIN 30 pg (27-31); MEAN CORPUSCULAR HGB CONC 34 g/dl (33.0-37.0); MEAN PLATELET VOLUME 9.4 fl (7.4-10.4); PLATELET COUNT 188 K/mm3 (130-400); RED BLOOD COUNT 3.88 M/mm3 (4.20-5.60); REDCELL DISTRIBUTION WIDTH-CV 12.5 % (11.5-14.5)
[2023-06-24 18:27] LABS: HEMATOCRIT 34.4 % (42.0-52.0)
[2023-06-24 18:43] LABS: CALCIUM 11.8 mg/dL (8.4-10.2); CREATININE, serum 2.08 mg/dL (0.72-1.25); POTASSIUM 3.9 mmol/L (3.5-4.5)
--- NOTE | 2023-06-24 19:09 | NUR ---
RECEIVED CHANGE OF SHIFT REPORT FROM DAY SHIFT RN.
--- NOTE | 2023-06-24 19:24 | NUR ---
RELEASE 3 ML OF AIR FROM RADIAL BAND PER P/P. PATIENT RESTING WITH NO COMPLAINTS WITH EYES CLOSED, BREATHING EVEN AND AND NONLABORED. DENIES CHEST PAIN/SOA AT THIS TIME. SKIN WARM/DRY/NORMAL IN COLOR.
--- NOTE | 2023-06-24 21:45 | NUR ---
PATIENT FOUND IN BATHROOM, SET OFF BED EXIT ALARM, PATIENT UP STANDING, MOBLEY IN PLACE, CBI DISCONNECTED FROM 3000 ML SALINE BAGS AND FLUID FOUND ON FLOOR FROM CBI SOLUTION, TELE IN PLACE, IV SITES IN PLACE WITH TUBINGS IN PLACE AND FLUIDS INFUSING. PATIENT STATED HE DID NOT KNOW WHY HE WAS UP TO BATHROOM. PATIENT COOPERATIVE, SOA WITH EXERTION WHEN SITTING AT SIDE OF BED. PATIENT LAID BACK DOWN IN BED, REPORTED BRIEF C/O MID STERNAL CHEST DISCOMFORT AND SOME SOA THAT SUBSIDED. VS TAKEN SEE Where Was it Filmed. 3000 ML X1 BAG ADDED TO CBI, RUNNING RAPID WITH IMMEDIATE PALE PINK RETURN IN [address] MOBLEY CATH THEN CBI RATE DECREASED DOWN TO MODERATE RATE. URINE OUTPUT NOW PINKISH-GOLD COLOR WITH SOME RED SEDIMENT IN TUBING.
--- NOTE | 2023-06-24 21:45 | NUR ---
REMAINING 2ML REMOVED FROM RADIAL BAND. NO BLEEDING OBSERVED TO R RADIAL HEART CATH SITE. PATIENT DENIES CHEST PAIN/SOA
--- NOTE | 2023-06-24 22:17 | NUR ---
OBSERVED AFTER IV MS GIVEN FOR BLADDER PAIN AND ZOFRAN GIVEN FOR STOMACH COMPLAINT THAT PATIENT REPLIED "I DON'T KNOW" IF HE WAS NAUSEATED, SEE MAR. OXYGEN PER NC AT 2LPM PLACED TO GRACE NARES ON PATIENT FOR LOW O2 SAT IN THE LOWER 80'S. OXYGEN SAT IMPROVED TO 98% AFTER ON OXYGEN FOR LESS THAN 5 MIN.
--- NOTE | 2023-06-24 23:00 | NUR ---
OXYGEN CONTINUES PER NC AT 2 LPM. PATIENT CONTINUES TO ANSWER QUESTIONS WITH "I DON'T KNOW" INFORMED ONCALL HOSP WITH PATIENT'S CURRENT STATUS, NO CHANGES IN ORDER, PROVIDER RECOMMENDED NURSING TO CALL HOSP IF PATIENT C/O PAIN AGAIN.
[2023-06-24] MEDS ORDERED: NS Irrig Soln 3000 ML SOLN IRP PRN (23:45)
[2023-06-25] VITALS (12 sets, daily range): BP systolic 116–137; BP diastolic 55–614; PULSE 70–82; TEMP 98.1–99.6
--- NOTE | 2023-06-25 00:30 | NUR ---
OBSERVED URINE OUTPUT SLOW WITH RED STRINGY CLOTS, URINE PINK TINGED. HAND IRRIGATED CATHETER WITH 60 ML SOLUTION PER HOSP P/P, NO RESISTANCE OBSERVED WITH 60 ML RETURN OBSERVED ABOUT 5 ML OF FLATISH CLOTS PULLED BACK WITH IRRIGATION SOLUTION. OBSERVED URINE POST HAND IRRIGATION CLEAR AND SCANT AMOUNT STRINGY CLOTS IN TUBING AND OUTPUT INCREASED AFTER HAND IRRIGATION.
--- NOTE | 2023-06-25 05:00 | NUR ---
PATIENT ATTEMPTING TO GET OUT OF BED WITHOUT CALLING STAFF FOR ASSISTANCE, WOULD NOT ANSWER QUESTIONS WHAT PATIENT NEEDED TO GET OUT OF BED FOR. OBSERVED PATIENT SOA WITH EXERTION/GETTING OUT OF BED, PATIENT WITH SOME UNSTEADY STANDING AND NEEDING CUES TO TRANSFER FROM SIDE OF BED TO RECLINER CHAIR. PATIENT DENIED CHEST PAIN/SOA ONCE UP IN RECLINER CHAIR. OXYGEN CONTINUES PER NC AND CBI AT MOD TO SLOW RATE WITH LIGHT PINK OUT PUT WITH ACTIVITY, NO CLOTS OBSERVED IN CATHETER TUBING.
--- NOTE | 2023-06-25 07:27 | NUR ---
CHANGE OF SHIFT REPORT GIVEN TO DAY SHIFT NURSEBERTA.
[2023-06-25 07:51] LABS: BASO # 0.1 K/mm3 (0.0-0.2); BASO % 0.7 % (0.0-2.0); EOS # 0.2 K/mm3 (0.0-0.7); GRAN # 7.7 K/mm3 (1.4-6.5); GRAN % 73.2 % (42.2-75.2); HEMOGLOBIN 11.7 g/dl (13.5-18.0); LYMPH # 1.6 K/mm3 (1.2-3.4); LYMPH % 14.9 % (20.0-51.0); MEAN CELL VOLUME 90 fl (80.0-100.0); MEAN CORPUSCULAR HEMOGLOBIN 30 pg (27-31); MEAN CORPUSCULAR HGB CONC 33 g/dl (33.0-37.0); MEAN PLATELET VOLUME 10.1 fl (7.4-10.4); MONO # 0.9 K/mm3 (0.1-0.6); MONO % 8.6 % (1.7-9.3); PLATELET COUNT 196 K/mm3 (130-400); RED BLOOD COUNT 3.89 M/mm3 (4.20-5.60); REDCELL DISTRIBUTION WIDTH-CV 12.5 % (11.5-14.5)
[2023-06-25 08:24] LABS: ALBUMIN 3.3 gm/dL (3.4-4.8); BILIRUBIN,TOTAL 0.7 mg/dL (0.2-1.2); CALCIUM 11.3 mg/dL (8.4-10.2); CHOLESTEROL RISK RATIO 3.3; CREATININE, serum 1.84 mg/dL (0.72-1.25); MAGNESIUM 1.8 mg/dL (1.6-2.6); POTASSIUM 3.6 mmol/L (3.5-4.5); TOTAL PROTEIN 7.3 gm/dL (6.2-8.1)
[2023-06-25] MEDS ORDERED: Potassium Bicarbonate/Citrate 20 MEQ Effervescent TAB PO SCH (08:45)
--- NOTE | 2023-06-25 09:20 | NUR ---
PT SITTING UP IN BED, ALERT AND ORIENTEDX2. PT IS ORIENTED TO SELF AND PLACE. PT STATES THAT HE HAVING CONFUSION ABOUT THE DATE AND HOW MANY DAYS HES BEEN IN THE HOSPITAL. NO COMPLAINTS OF PAIN AT THIS TIME. CBI RUNNING MODERATELY. URINE IS PINK. NO CLOTS. ASSESSED. CALL LIGHT WITHIN REACH.
--- NOTE | 2023-06-25 09:30 | NUR ---
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. He is pleased to live here in [place] now away from all the activity of [facility]. Ember asked for water, User Interface Engineer asked nurse if it is ok, she said "yes." User Interface Engineer then wished "Smokey" well and offered God's blessings and a get well message.
--- NOTE | 2023-06-25 14:30 | NUR ---
report recieved from NAMRATA Langley. assessment complete. pt denies needs at this time. CBI running at a slow rate w yellow urine output. call light in reach. fall precautions in place.
--- NOTE | 2023-06-25 15:52 | NUR ---
Photoengraving Etcher contacted Patient's daughter to discuss discharge planning. Patient's daughter preferrs Patient to discharge home with home health at this time. Daughter states that she is comeing to bedside this evening and if concerned about her ability to care for Patient will notify Nursing and SW.
--- NOTE | 2023-06-25 17:17 | NUR ---
cheese factory worker spoke with Vanessa [place] cheese factory worker, whom expressed patient has [facility], if patient returns home he would be able to continue those services.
--- NOTE | 2023-06-25 20:40 | NUR ---
Patient assessed at this time, see shift assessment, A/Ox2, denies pain at this time of assessment, remains with CBI infusing at slow rate draining clear yellow urine with 750 credit from dayshift, on oxygen at 2LPM, denies SOA, denies further needs, call light and personal items within reach, fall precautions in place.
--- NOTE | 2023-06-25 21:45 | NUR ---
Patient complained of pain on his bladder, PS of 8/10, livingston still to dd yellow drainage, with CBI still infusing at slow rate, medicated with IV morphine.
[2023-06-26] VITALS (13 sets, daily range): BP systolic 115–143; BP diastolic 54–76; PULSE 68–83; TEMP 97.5–98.7
[2023-06-26 08:29] LABS: BILIRUBIN,TOTAL 0.6 mg/dL (0.2-1.2); CALCIUM 10.5 mg/dL (8.4-10.2); CREATININE, serum 1.6 mg/dL (0.72-1.25); POTASSIUM 3.5 mmol/L (3.5-4.5); TOTAL PROTEIN 6.9 gm/dL (6.2-8.1)
[2023-06-26 08:44] LABS: BASO # 0.1 K/mm3 (0.0-0.2); BASO % 0.9 % (0.0-2.0); EOS # 0.3 K/mm3 (0.0-0.7); EOS % 3.3 % (0.0-4.0); GRAN # 6.1 K/mm3 (1.4-6.5); GRAN % 67.6 % (42.2-75.2); HEMOGLOBIN 11.5 g/dl (13.5-18.0); LYMPH # 1.8 K/mm3 (1.2-3.4); LYMPH % 19.5 % (20.0-51.0); MEAN CELL VOLUME 88 fl (80.0-100.0); MEAN CORPUSCULAR HEMOGLOBIN 30 pg (27-31); MEAN CORPUSCULAR HGB CONC 34 g/dl (33.0-37.0); MEAN PLATELET VOLUME 10.3 fl (7.4-10.4); MONO # 0.8 K/mm3 (0.1-0.6); MONO % 8.4 % (1.7-9.3); PLATELET COUNT 192 K/mm3 (130-400); REDCELL DISTRIBUTION WIDTH-CV 12.1 % (11.5-14.5)
[2023-06-26 08:54] LABS: HEMATOCRIT 33.5 % (42.0-52.0)
[2023-06-26] MEDS ORDERED: Potassium Chloride 100 ML IV SCH (09:00)
[2023-06-26] MEDS ORDERED: Potassium Bicarbonate/Citrate 20 MEQ Effervescent TAB PO SCH (11:00)
--- NOTE | 2023-06-26 11:22 | NUR ---
Patient resting in bed. He was up to the chair this am and given an extensive bed bath & fresh linens. Patient bed alarm had gone off, he was experiecing bladder discomfort. Clots noted in living[place] & hand irrigation completed & large clot retreived. Patient much more comfortable now. I spoke with , plans for bedside cysto this afternoon, but verified patient able to eat. Patient thankful for fresh ice water. His supportive daughter at bedside.
--- NOTE | 2023-06-26 13:40 | NUR ---
rounded, plan of care reviwed with patient and daughter. Bedside cysto to be completed. Patient did well with lunch. K+ replacement to be completed.
[2023-06-26] MEDS ORDERED: Magnes Hydrox (MOM) 80 MG/ML 30 ML CUP PO ONE (14:00)
--- NOTE | 2023-06-26 14:53 | NUR ---
Given update, made her aware of patients daughter concerns of constipation. MOM ordered and given
--- NOTE | 2023-06-26 18:27 | NUR ---
Patient now having loose watery stools & had frequent trips to the bathroom, no longer constipated. Minimal appetite. Continue with high risk protocol, but is using call light appropriately. Rees to DD with blood tinged urine
--- NOTE | 2023-06-26 20:47 | NUR ---
Patient assessed around this time, see shift assessment, more oriented at this time, had only one small bm after shift change but still he keeps going to the bathroom and only pass gas, still with IV on right hand infusing well, denies further needs, call light and personal items within reach, fall precautions in place, will continue to monitor.
[2023-06-27] VITALS (8 sets, daily range): BP systolic 110–143; BP diastolic 56–78; PULSE 55–83; TEMP 97.4–98.8
--- NOTE | 2023-06-27 | NUR ---
Patient fell and found on the floor by this nurse at 2330. He denied hitting his head, vitals stable, charge nurse Katiuska informed and got into his room as well, got the patient up with the use of gait belt and put him back to bed with bed alarm on, call light within reach. Tao solorzano PA was made aware at 2338, no new orders received at this time, will closely monitor patient. Will also inform the daughter this coming morning.
--- NOTE | 2023-06-27 00:45 | NUR ---
Patient complained of nausea and headache, medicated with zofran and tylenol. He reports he's been having chronic headaches and Tao was made aware regarding this, will continue to monitor.
--- NOTE | 2023-06-27 03:05 | NUR ---
Patient sweating, blood sugar 156mg/dl, VSS, denies further needs, will continue to monitor.
--- NOTE | 2023-06-27 05:00 | NUR ---
Patient resting in bed, eyes closed, looks comfortable.
--- NOTE | 2023-06-27 06:34 | NUR ---
Spoken to patient's daughter Stacia and updated her regarding the fall last night, she's appreciative that this nurse informed her.
[2023-06-27 07:19] LABS: BASO # 0.1 K/mm3 (0.0-0.2); BASO % 0.9 % (0.0-2.0); EOS # 0.2 K/mm3 (0.0-0.7); EOS % 2.3 % (0.0-4.0); GRAN # 7.3 K/mm3 (1.4-6.5); GRAN % 69.7 % (42.2-75.2); LYMPH # 1.9 K/mm3 (1.2-3.4); LYMPH % 18.1 % (20.0-51.0); MEAN CELL VOLUME 86 fl (80.0-100.0); MEAN CORPUSCULAR HEMOGLOBIN 30 pg (27-31); MEAN CORPUSCULAR HGB CONC 35 g/dl (33.0-37.0); MEAN PLATELET VOLUME 9.8 fl (7.4-10.4); MONO # 0.9 K/mm3 (0.1-0.6); MONO % 8.6 % (1.7-9.3); PLATELET COUNT 186 K/mm3 (130-400); RED BLOOD COUNT 3.98 M/mm3 (4.20-5.60); REDCELL DISTRIBUTION WIDTH-CV 11.8 % (11.5-14.5)
[2023-06-27 07:21] LABS: HEMATOCRIT 34.3 % (42.0-52.0)
[2023-06-27 07:41] LABS: ALBUMIN 3.1 gm/dL (3.4-4.8); BILIRUBIN,TOTAL 0.7 mg/dL (0.2-1.2); CALCIUM 10.3 mg/dL (8.4-10.2); CREATININE, serum 1.56 mg/dL (0.72-1.25); POTASSIUM 3.8 mmol/L (3.5-4.5); TOTAL PROTEIN 6.7 gm/dL (6.2-8.1)
--- NOTE | 2023-06-27 07:44 | NUR ---
RECIEVED REPORT FROM POPCORN ATTENDANT RN BENJAMIN.
--- NOTE | 2023-06-27 09:00 | NUR ---
UPON ENTERING ROOM THIS AM Pt IS PRETTY SLEEPY. PER REPORT FROM TRY OUT PERSON RN Pt HAD A FALL. HE IS ALERT TO SELF AND PLACE. SHIFT ASSESSMENT COMPLETE, SEE DOCUMENTATION. MEIDCATED PER EMAR, DENIES PAIN AT THIS TIME. PER REPORT FROM TRY OUT PERSON RN HE MAY GO HOME TODAY WITH HOME HEALTH. EATING BREAKFAST GREAT INDEPENDANTLY, AND IS ONE PERSON ASSIST WITH A CANE. INT TO LEFT FOREARM FLUSHING WELL, CDI. CALL LIGHT WITHIN REACH, BED ALARM ENGAGED.
[2023-06-27] MEDS ORDERED: Potassium Bicarbonate/Citrate 20 MEQ Effervescent TAB PO ONE (09:30)
[2023-06-27] MEDS ORDERED: TOPROL XL 25MG25 MG PO (12:48)
[2023-06-27] MEDS ORDERED: LIPITOR 80MG80 MG PO (12:48)
--- NOTE | 2023-06-27 13:39 | NUR ---
SALLY met with patient and his daughter Stacia Lopez to assist with intake, patient was preparing for discharge with HH. [facility]. Patient formerly had HH with [facility] agency and has desigated them for continued care at this time. Patient resides with his daughter in the home to also support. Patient currently utilizes shower chair, cane, and support bar in restroom to aid with mobility. Daughter (Stacia Lopez) informed SW that he does have DPOA and she is listed as the bilingual sales representative, no copy on file currently. SALLY will fax over HH referral to [facility] for follow up care.
--- NOTE | 2023-06-27 14:20 | NUR ---
ALL DISCHARGE INSTRUCTIONS EXPLAINED AND ALLL QUESTIONS ANSWERED. INT REMOVED. MOBLEY CARE DEMONSTRATED AND EDUCATION PACKET WENT OVER. PT ESCORTED OUT TO PRIVATE VEHICLE WITH STAFF AT 1420.
[2023-06-28] MEDS ORDERED: LEVAQUIN 750MG750 M1 PO (21:15)
[2023-06-29 23:07] LABS: VITAMIN B1 138.7 nmol/L (())
[2023-07-02 17:08] LABS: PTH-RELATED PEPTIDE <2.0 pmol/L (())
== END 2023-06-27 14:20 | disposition home health service (06) | DRG 280 ==
LOC: COL.ER 17:07 → SURG 21:17 → EDBEDREQ 21:29 → SURG 22:53
PROVIDERS: Nurse Practitioner; Physician Assistant; ADMIT Hospitalist
PROC: 4A023N7 Measurement of Cardiac Sampling and Pressure, Left Heart, Percutaneous Approach (ICD-10-PCS; principal; 2023-06-24)
PROC: B2111ZZ Fluoroscopy of Multiple Coronary Arteries using Low Osmolar Contrast (ICD-10-PCS; 2023-06-24)
PROC: 0TJB8ZZ Inspection of Bladder, Via Natural or Artificial Opening Endoscopic (ICD-10-PCS; 2023-06-26)
DX: I21.4 Non-ST elevation (NSTEMI) myocardial infarction (principal); G93.41 Metabolic encephalopathy; N17.9 Acute kidney failure, unspecified; N13.30 Unspecified hydronephrosis; N13.8 Other obstructive and reflux uropathy; N40.1 Benign prostatic hyperplasia with lower urinary tract symptoms; E78.5 Hyperlipidemia, unspecified; G89.4 Chronic pain syndrome; E11.9 Type 2 diabetes mellitus without complications; R33.8 Other retention of urine; E87.6 Hypokalemia; E83.52 Hypercalcemia; K59.00 Constipation, unspecified; I44.7 Left bundle-branch block, unspecified; F32.A Depression, unspecified; W06.XXXA Fall from bed, initial encounter; Y92.238 Other place in hospital as the place of occurrence of the external cause; R79.89 Other specified abnormal findings of blood chemistry; I08.0 Rheumatic disorders of both mitral and aortic valves; R31.0 Gross hematuria; Z86.16 Personal history of COVID-19; Z79.899 Other long term (current) drug therapy; Z90.89 Acquired absence of other organs; Y93.89 Activity, other specified; Z23 Encounter for immunization
CPT/HCPCS: C1769; J1644; J2250; J2270; J2405; J3010; J3480

== ENCOUNTER 2023-07-23 13:12 | Day surgery (SDC) | payer OTHER, MEDICARE ==
[~2023-07-23] VITALS: Ht 167.6 cm; Wt 86.0 kg
[2023-07-23] VITALS (12 sets, daily range): BP systolic 101–152; BP diastolic 42–103; PULSE 52–94; TEMP 97.7–98.7
[~2023-07-23 13:12] MED LIST changes: +LEVAQUIN 750MG750 M1 PO; +LIPITOR 80MG80 MG PO; +LR 1,000 ML IV SCH; +MILK OF MA400 MG/52 PO; +TOPROL XL 25MG25 MG PO
[2023-07-23 13:33] LABS: BASO # 0.1 K/mm3 (0.0-0.2); BASO % 1.5 % (0.0-2.0); EOS # 0.4 K/mm3 (0.0-0.7); GRAN % 49.7 % (42.2-75.2); HEMATOCRIT 40.1 % (42.0-52.0); LYMPH % 33.1 % (20.0-51.0); MEAN CELL VOLUME 88 fl (80.0-100.0); MEAN CORPUSCULAR HEMOGLOBIN 31 pg (27-31); MEAN CORPUSCULAR HGB CONC 35 g/dl (33.0-37.0); MEAN PLATELET VOLUME 9.8 fl (7.4-10.4); MONO # 0.6 K/mm3 (0.1-0.6); MONO % 9.2 % (1.7-9.3); PLATELET COUNT 151 K/mm3 (130-400); RED BLOOD COUNT 4.58 M/mm3 (4.20-5.60); REDCELL DISTRIBUTION WIDTH-CV 13.5 % (11.5-14.5)
[2023-07-23] MEDS ORDERED: Ondansetron 4 MG/2 ML VIAL IV PRN ×2 (13:45→14:30)
[2023-07-23] MEDS ORDERED: HYDROmorphone 2 MG/1 ML VIAL IV PRN (13:45)
[2023-07-23] MEDS ORDERED: Morphine 4 MG/ML VIAL IV PRN ×2 (13:45→14:30)
[2023-07-23] MEDS ORDERED: fentaNYL 50 MCG/ML 2 ML VIAL IV PRN (13:45)
[2023-07-23] MEDS ORDERED: NS 10 ML IV ONE (13:47)
[2023-07-23] MEDS ORDERED: fentaNYL 50 MCG/ML 2 ML VIAL ONE (13:47)
[2023-07-23] MEDS ORDERED: Lidocaine PF 2% (20 MG/ML) 5 ML VIAL ONE (13:47)
[2023-07-23] MEDS ORDERED: Ondansetron 4 MG/2 ML VIAL ONE (13:47)
[2023-07-23] MEDS ORDERED: Midazolam 2 MG/2 ML VIAL ONE (13:47)
[2023-07-23 13:49] LABS: CALCIUM 11.6 mg/dL (8.4-10.2); CREATININE, serum 1.2 mg/dL (0.72-1.25); POTASSIUM 4.5 mmol/L (3.5-4.5)
[2023-07-23] MEDS ORDERED: MAG-OX 400400 MG/TAB PO (13:53)
[2023-07-23] MEDS ORDERED: 1/2 NS & 20 mEq KCl 1,000 ML IV SCH (14:30)
[2023-07-23] MEDS ORDERED: Hyoscyamine 0.125 MG Sublingual TAB SL PRN (14:30)
[2023-07-23] MEDS ORDERED: NS Irrig Soln 3000 ML SOLN IR PRN (14:30)
[2023-07-23] MEDS ORDERED: Magnes Hydrox (MOM) 80 MG/ML 30 ML CUP PO PRN (14:30)
[2023-07-23] MEDS ORDERED: Acetaminophen 325 MG TAB PO PRN (14:30)
[2023-07-23] MEDS ORDERED: Tranexamic Acid 1,000 MG/10 ML VIAL ONE (14:30)
[2023-07-23] MEDS ORDERED: ePHEDrine 50 MG/ML VIAL ONE (14:35)
[2023-07-23] MEDS ORDERED: Lidocaine 2% (20 MG/ML) 20 ML UROJET UR ONE (14:37)
[2023-07-23] MEDS ORDERED: Phenylephrine 10 MG/ML VIAL ONE (15:06)
--- NOTE | 2023-07-23 16:33 | NUR ---
PT TO ROOM 328 PER BED WITH REPORT FROM DAVID OTT PACU. PT IS A/O X4 LUNGS CTA, LEANDRA TO DD WITH CBI RUNNING PINK. HOSPITALIST CONSULT CALLED TO JEAN ANTONY.
[2023-07-23] MEDS ORDERED: Insulin Aspart (NovoLOG) SQ SCH (17:00)
--- NOTE | 2023-07-23 20:00 | NUR ---
PATIENT RESTING IN BED WATCHING TV. PATIENT IS ALERT AND ORIENTED. MEDICATIONS GIVEN PER MAR. SHIFT ASSESSMENT COMPLETE. CBI DRAINING DEPENDENTLY. URINE APPEARS CLEAR, RED, WITH NO CLOTS. MEATUS OF THE PENIS APPEARS EDEMATOUS AND RED. WILL CONT TO MONITOR FOR CHANGES. PATIENT STATES PAIN IS TOLERABLE. CALL LIGHT WITHIN REACH. PATIENT DENIES ANY PAIN OR NEEDS AT THIS TIME.
[2023-07-23] MEDS ORDERED: Magnesium Oxide 400 MG TAB PO SCH (21:00)
[2023-07-23] MEDS ORDERED: traZODone 100 MG TAB PO SCH (21:00)
[2023-07-23] MEDS ORDERED: Docusate Sodium 100 MG CAP PO SCH (21:00)
--- NOTE | 2023-07-23 22:31 | NUR ---
PATIENT CALLED TO NOTIFY THIS NURSE OF LEAKING OF THE CBI. THIS NURSE SAW THE CBI TUBING WAS DICONNECTED FROM THE CATHETER. THIS NURSE CLEANED AND RECONNECTED THE TUBING. URINE CONTINUES TO BE RED AND CLEAR, ONE SMALL CLOT NOTED IN TUBING. WILL CONT TO MONITOR FOR CHANGES.
[2023-07-24] VITALS (12 sets, daily range): BP systolic 91–116; BP diastolic 50–68; PULSE 74–99; TEMP 98.5–99.2
[2023-07-24 08:28] LABS: BASO # 0.1 K/mm3 (0.0-0.2); BASO % 1.1 % (0.0-2.0); EOS # 0.2 K/mm3 (0.0-0.7); EOS % 3.5 % (0.0-4.0); GRAN # 4.2 K/mm3 (1.4-6.5); LYMPH # 1.5 K/mm3 (1.2-3.4); LYMPH % 22.1 % (20.0-51.0); MEAN CELL VOLUME 90 fl (80.0-100.0); MEAN CORPUSCULAR HGB CONC 33 g/dl (33.0-37.0); MEAN PLATELET VOLUME 10.3 fl (7.4-10.4); MONO # 0.7 K/mm3 (0.1-0.6); MONO % 9.8 % (1.7-9.3); PLATELET COUNT 151 K/mm3 (130-400); RED BLOOD COUNT 3.92 M/mm3 (4.20-5.60); REDCELL DISTRIBUTION WIDTH-CV 13.4 % (11.5-14.5)
[2023-07-24 08:44] LABS: HEMATOCRIT 35.3 % (42.0-52.0); HEMOGLOBIN 11.8 g/dl (13.5-18.0); MEAN CORPUSCULAR HEMOGLOBIN 30 pg (27-31)
--- NOTE | 2023-07-24 08:49 | NUR ---
Patient resting in bed. rounded this am, plan of care reviewed. He was made aware of low BP. Toprol held this am. Patient reports discomfort at [place]. Tylenol & Levsin PRN given. Patient tolerating breakfast. [place] to DD with CBI to slow/ mod rate. [place]/reddish tinged output without clots. INT. Will monitor
[2023-07-24 08:52] LABS: CALCIUM 10.6 mg/dL (8.4-10.2); CREATININE, serum 1.24 mg/dL (0.72-1.25); POTASSIUM 4.3 mmol/L (3.5-4.5)
[2023-07-24] MEDS ORDERED: Citalopram 20 MG TAB PO SCH (09:00)
--- NOTE | 2023-07-24 11:44 | NUR ---
SW met with patient to complete intake. Patient provides he lives in [facility], is independent with ADL's, utilizes a cane, and does [facility] and confirmed with point of contact daughter Stacia [phone]. PCP is at the [facility] and [facility]. Appointed DPOA\HC is daughter. Another point of contact is Dominick (son). PT evaluation reviewed in documentation and recommends home with HH services. SALLY will continue to follow. DC plan: home with home health
--- NOTE | 2023-07-24 13:13 | NUR ---
Data: Patient accepted Patient Experience Coordinator visit offered during Patient Experience Coordinator rounds. Patient was preparing to eat his lunch. Patient Experience Coordinator assisted with opening condement packets and cutting his hamburger in half. 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 Plan of Care: Patient Experience Coordinator provided supportive listening during Patient's life review. Patient thanked Patient Experience Coordinator for the visit.
--- NOTE | 2023-07-24 14:58 | NUR ---
Patient resting in bed, He sat in chair briefly, but wanted back to bed. Was up to the bathroom & had BM. reiterated the importance of not straining with BM. CBI to slow rate with pink tinged output without clots. Int. Tolerating diet without nausea. Drinking adequate fluids. Will monitor
--- NOTE | 2023-07-24 17:33 | NUR ---
Patient resting in bed. Family visited this evening. Dinner ordered. Medications for [place] discomfort. CBI to slow rate, dark pink output. Sediment noted. INT. VSS. Will report off to nightnurse
[2023-07-25] VITALS (7 sets, daily range): BP systolic 100–115; BP diastolic 64–67; PULSE 63–72; TEMP 97.5–98.3
--- NOTE | 2023-07-25 07:49 | NUR ---
PATIENT SITTING UP IN BED WATCHING TV. ALERT AND ORIENTED. SHIFT ASSESSMENT COMPLETE. MOBLEY CATHETER DRAINING DEPENDENTLY WITH RED-TINGED URINE NOTED. CBI RUNNING SLOW. PATIENT COMPLAINS OF PAIN TO MEATUS OF PENIS. GENERALIZED EDEMA NOTED TO PENIS. WILL CONT TO MONITOR FOR CHANGES. PATIENT DENIES NEEDS OR CONCERNS AT THIS TIME.
[2023-07-25] MEDS ORDERED: Nystatin 100,000 Units/GM Ointment 15 GM TUBE TP SCH (09:00)
--- NOTE | 2023-07-25 09:21 | NUR ---
THIS NURSE D/C MOBLEY PER ORDERS. PINK URINE NOTED TO MOBLEY. TOTAL MOBLEY OUTPUT WAS 1650 ML. PATIENT TOLERATED PROCEDURE WELL. CATHETER CARE PROVIDED. THIS NURSE EDUCATED PATIENT ON 6 CUP ROUTINE. PATIENT VERBALIZES UNDERSTANDING. WILL MONITOR FOR CHANGES.
[2023-07-25] MEDS ORDERED: Glucagon 1 MG VIAL IM PRN (10:00)
[2023-07-25] MEDS ORDERED: Dextrose (Glucose) 15 GM (4 x 3.75 GM) Chewable TABLET PACK PO PRN (10:00)
[2023-07-25] MEDS ORDERED: Dextrose 50% Water 25 GM/50 ML SYRINGE IV PRN (10:00)
--- NOTE | 2023-07-25 14:45 | NUR ---
THIS NURSE PROVIDED DISCHARGE INSTRUCTIONS. ALL QUESTIONS ANSWERED.
--- NOTE | 2023-07-25 15:10 | NUR ---
INT discontinued, discharged per WC
--- NOTE | 2023-07-25 15:22 | NUR ---
PATIENT ESCORTED OFF UNIT AT 1510 VIA WHEELCHAIR. ALL BELONGINGS WITH PATIENT.
== END 2023-07-25 15:10 | disposition home or self-care (01) ==
LOC: SURG 13:12 → SDCO 13:12 → SURG 16:30 → SDCO 07-25 15:10
PROVIDERS: Physician Assistant; Urology
DX: N40.1 Benign prostatic hyperplasia with lower urinary tract symptoms (principal); N13.8 Other obstructive and reflux uropathy; R39.14 Feeling of incomplete bladder emptying; R39.12 Poor urinary stream; R35.1 Nocturia; E11.9 Type 2 diabetes mellitus without complications; E83.52 Hypercalcemia; F32.A Depression, unspecified; E78.5 Hyperlipidemia, unspecified; K21.9 Gastro-esophageal reflux disease without esophagitis; G89.4 Chronic pain syndrome; I10 Essential (primary) hypertension; R53.81 Other malaise; R53.1 Weakness; Z79.4 Long term (current) use of insulin
CPT/HCPCS: OP; J0690; J1815; J2250; J2371; J2405; J2704; J3010; J7120

== ENCOUNTER 2024-02-13 19:06 | Emergency (ER) | payer OTHER ==
[~2024-02-13] VITALS: Ht 172.7 cm; Wt 81.8 kg
[~2024-02-13 19:06] MED LIST changes: -LR 1,000 ML IV SCH; +MAG-OX 400400 MG/TAB PO
[2024-02-13 19:11] VITALS: TEMP 98.6
[2024-02-13 19:21] LABS: BASO # 0.1 K/mm3 (0.0-0.2); BASO % 1.9 % (0.0-2.0); EOS # 0.2 K/mm3 (0.0-0.7); EOS % 3.3 % (0.0-4.0); GRAN # 3.1 K/mm3 (1.4-6.5); HEMOGLOBIN 14.5 g/dl (13.5-18.0); LYMPH # 2.9 K/mm3 (1.2-3.4); LYMPH % 41.3 % (20.0-51.0); MEAN CELL VOLUME 89 fl (80.0-100.0); MEAN CORPUSCULAR HEMOGLOBIN 31 pg (27-31); MEAN CORPUSCULAR HGB CONC 35 g/dl (33.0-37.0); MEAN PLATELET VOLUME 9.7 fl (7.4-10.4); MONO # 0.6 K/mm3 (0.1-0.6); MONO % 8.2 % (1.7-9.3); PLATELET COUNT 172 K/mm3 (130-400); RED BLOOD COUNT 4.72 M/mm3 (4.20-5.60); REDCELL DISTRIBUTION WIDTH-CV 11.8 % (11.5-14.5)
[2024-02-13 19:39] LABS: ALANINE AMINOTRANSFERASE 24 U/L (0-55); ALBUMIN 3.8 g/dL (3.4-4.8); ALKALINE PHOSPHATASE 57 U/L (40-150); ANION GAP 9 mmol/L (7-16); AST,SGOT 18 U/L (5-34); BLOOD UREA NITROGEN 17 mg/dL (8-26); CALCIUM 9.9 mg/dL (8.4-10.2); CHLORIDE 105 mEq/L (98-107); CREATININE, serum 1.31 mg/dL (0.72-1.25); GLUCOSE 135 mg/dL (70-99); POTASSIUM 4.3 mEq/L (3.5-4.5); SODIUM 138 mEq/L (136-145)
[2024-02-13] MEDS ORDERED: NS 1,000 ML IV ONE (19:45)
[2024-02-13 19:47] LABS: BILIRUBIN,TOTAL 0.5 mg/dL (0.2-1.2); TROPONIN-I < 0.010 ng/mL (0.00-0.033)
[2024-02-13] MEDS ORDERED: Morphine 4 MG/ML VIAL IV ONE (20:00)
[2024-02-13 22:51] VITALS: BP 104/53; PULSE 66
== END 2024-02-13 22:51 | disposition home or self-care (01) ==
LOC: COL.ER 19:06
PROVIDERS: Physician Assistant
DX: R07.89 Other chest pain (principal); Z87.891 Personal history of nicotine dependence
CPT/HCPCS: J2270; J7030

== ENCOUNTER 2024-02-25 13:09 | Emergency (ER) | payer OTHER ==
[~2024-02-25] VITALS: Ht 172.7 cm; Wt 86.4 kg
[2024-02-25 13:14] VITALS: TEMP 97.9
[2024-02-25 13:45] LABS: BASO # 0.1 K/mm3 (0.0-0.2); BASO % 1.6 % (0.0-2.0); EOS # 0.2 K/mm3 (0.0-0.7); EOS % 2.6 % (0.0-4.0); GRAN # 3.6 K/mm3 (1.4-6.5); HEMATOCRIT 44.5 % (42.0-52.0); HEMOGLOBIN 15.7 g/dl (13.5-18.0); LYMPH # 2.5 K/mm3 (1.2-3.4); LYMPH % 36.1 % (20.0-51.0); MEAN CELL VOLUME 89 fl (80.0-100.0); MEAN CORPUSCULAR HEMOGLOBIN 32 pg (27-31); MEAN CORPUSCULAR HGB CONC 35 g/dl (33.0-37.0); MEAN PLATELET VOLUME 9.7 fl (7.4-10.4); MONO # 0.5 K/mm3 (0.1-0.6); MONO % 7.4 % (1.7-9.3); PLATELET COUNT 181 K/mm3 (130-400); RED BLOOD COUNT 4.98 M/mm3 (4.20-5.60)
[2024-02-25 14:04] LABS: ALBUMIN 4.1 g/dL (3.4-4.8); BILIRUBIN,TOTAL 0.7 mg/dL (0.2-1.2); CALCIUM 9.7 mg/dL (8.4-10.2); CREATININE, serum 1.31 mg/dL (0.72-1.25); POTASSIUM 4.4 mEq/L (3.5-4.5); TOTAL PROTEIN 7.8 g/dl (6.2-8.1)
[2024-02-25 14:10] LABS: TROPONIN-I 0.011 ng/mL (0.00-0.033)
[2024-02-25] MEDS ORDERED: Acetaminophen 500 MG TAB PO ONE (15:30)
[2024-02-25 17:45] VITALS: BP 136/75; PULSE 55
== END 2024-02-25 17:45 | disposition home or self-care (01) ==
LOC: COL.ER 13:09
PROVIDERS: Emergency Medicine
DX: R07.89 Other chest pain (principal); R06.02 Shortness of breath

== ENCOUNTER 2024-04-07 18:54 | Observation (INO) | payer OTHER ==
[~2024-04-07] VITALS: Ht 172.7 cm; Wt 90.1 kg
[2024-04-07 19:45] LABS: BASO # 0.1 K/mm3 (0.0-0.2); BASO % 1.6 % (0.0-2.0); EOS # 0.3 K/mm3 (0.0-0.7); EOS % 3.7 % (0.0-4.0); GRAN # 3.2 K/mm3 (1.4-6.5); HEMATOCRIT 43.7 % (42.0-52.0); HEMOGLOBIN 15.5 g/dl (13.5-18.0); LYMPH # 2.8 K/mm3 (1.2-3.4); LYMPH % 40.2 % (20.0-51.0); MEAN CELL VOLUME 89 fl (80.0-100.0); MEAN CORPUSCULAR HEMOGLOBIN 32 pg (27-31); MEAN CORPUSCULAR HGB CONC 36 g/dl (33.0-37.0); MEAN PLATELET VOLUME 10.1 fl (7.4-10.4); MONO # 0.6 K/mm3 (0.1-0.6); MONO % 8.2 % (1.7-9.3); PLATELET COUNT 179 K/mm3 (130-400); RED BLOOD COUNT 4.89 M/mm3 (4.20-5.60); REDCELL DISTRIBUTION WIDTH-CV 11.9 % (11.5-14.5)
[2024-04-07] MEDS ORDERED: fentaNYL 50 MCG/ML 2 ML VIAL IV ONE (19:45)
[2024-04-07] MEDS ORDERED: Aspirin 325 MG TAB PO ONE (19:45)
[2024-04-07 20:00] LABS: ALANINE AMINOTRANSFERASE 30 U/L (0-55); ALBUMIN 3.8 g/dL (3.4-4.8); ALKALINE PHOSPHATASE 59 U/L (40-150); ANION GAP 11 mmol/L (7-16); AST,SGOT 22 U/L (5-34); BILIRUBIN,TOTAL 0.5 mg/dL (0.2-1.2); BLOOD UREA NITROGEN 18 mg/dL (8-26); CALCIUM 9.7 mg/dL (8.4-10.2); CHLORIDE 104 mEq/L (98-107); CREATININE, serum 1.27 mg/dL (0.72-1.25); GLUCOSE 189 mg/dL (70-99); LIPASE 94 U/L (8-78); POTASSIUM 4.1 mEq/L (3.5-4.5); SODIUM 138 mEq/L (136-145)
[2024-04-07 20:06] LABS: TROPONIN-I < 0.010 ng/mL (0.00-0.033)
[2024-04-07 21:06] LABS: THYROID STIMULATING HORMONE 1.348 uIU/mL (0.350-4.940)
[2024-04-07] MEDS ORDERED: Morphine 4 MG/ML VIAL IV PRN (23:45)
[2024-04-07] MEDS ORDERED: Acetaminophen 325 MG TAB PO PRN (23:45)
[2024-04-08] VITALS (7 sets, daily range): BP systolic 102–121; BP diastolic 64–76; PULSE 61–68; TEMP 98.1–98.6
[2024-04-08 04:02] LABS: COLLECTION METHOD IN
[2024-04-08 04:11] LABS: URINE APPEARANCE CLEAR (CLEAR/HAZY); URINE BLOOD NEGATIVE (NEGATIVE); URINE COLOR YELLOW (YELLOW); URINE GLUCOSE TRACE (NEGATIVE); URINE KETONE TRACE (NEGATIVE); URINE NITRATE NEGATIVE (NEGATIVE); URINE PROTEIN(semi-quant) TRACE (NEGATIVE)
[2024-04-08] MEDS ORDERED: Citalopram 20 MG TAB PO SCH (09:00)
[2024-04-08 10:00] LABS: CHOLESTEROL RISK RATIO 3.3
[2024-04-08 10:38] LABS: TSH w REFLEX 1.447 uIU/mL (0.350-4.940)
--- NOTE | 2024-04-08 11:32 | NUR ---
PREDATORY ANIMAL HUNTER met with pt and , Stacia bedside to complete initial consult and discuss discharge planning. Pt is [facility] connected but unsure what team color he is. Pt no longer drives to [facility] for cares but a care team comes to his home. Pt and Stacia unable to recall physician name but THIERRY Pena and NAMRATA Fields visit the home frequently. Stacia states she has DP- that names her, . Pt uses [facility] for pharmacy as well. Pt lives at home with his and her brother Dominick. At home they have a shower chair, bar connected to the bed, toilet bars to push off of, and a shower bar. Pt nor Stacia report any falls within the last 3 months. Pt reports no weakness in his gait or feels unsteady. Stacia reports calf pain recently for pt. NAMRATA Parker was in the room and took note of this as well. Pt nor stacia have any concerns returning home. D/C: Home with spouse
--- NOTE | 2024-04-08 12:05 | NUR ---
Data: Patient declined spiritual care visit offered during Conference Reservationist rounds because his daughter is visiting him. Assessment: None. Patient declined. Plan of Care: Chaplains will remain available as requested while Patient is admitted to this hospital.
[2024-04-08] MEDS ORDERED: Glucagon 1 MG VIAL IM PRN (12:45)
[2024-04-08] MEDS ORDERED: Dextrose 50% Water 25 GM/50 ML SYRINGE IV PRN (12:45)
[2024-04-08] MEDS ORDERED: Dextrose (Glucose) 15 GM (4 x 3.75 GM) Chewable TABLET PACK PO PRN (12:45)
[2024-04-08] MEDS ORDERED: Insulin Lispro (HumaLOG) SQ SCH (17:00)
--- NOTE | 2024-04-08 18:58 | NUR ---
PATIENT RESTING IN BED WATCHING TV WITH NO FAMILY PRESENT WITH NO ACUTE DISTRSS NOTED. PATIENT ON ROOM AIR. INT INTACT TO RIGHT FOREARM WITH NO COMPLICATIONS NOTED. TELEMETRY INTACT. BEDSIDE SHIFT REPORT COMPLETED WITH DEEPA AT THIS TIME. PATIENT DENIES ANY PAIN OR NEEDS. BED IN LOW POSITION WITH WHEELS LOCKED WITH RAILS UP X2 AND CALL LIGHT WITHIN REACH.
--- NOTE | 2024-04-08 20:49 | NUR ---
PATIENT RESTING IN BED LYING SUPINE WITH TV ON WITH NO FAMILY PRESENT WITH NO ACUTE DISTRESS NOTED. PATIENT ON ROOM AIR. TELEMETRY INTACT. INT TO RIGHT FOREARM INTACT WITH NO COMPLICATIONS NOTED. ASSESSMENT AND MEDICATION ADMINISTRATION COMPLETED AT THIS TIME. PATIENT TOLERATED WELL. PATIENT REQUESTED ICE FOR HIS PITCHER AND WAS GIVEN. ALL NEEDS MET. BED IN LOW POSITION WITH WHEELS LOCKED WITH RAILS UP X2 AND CALL LIGHT WITHIN REACH.
[2024-04-08] MEDS ORDERED: Omega-3 Fatty Acid Esters (OTC) 1,000 MG CAP PO SCH (21:00)
[2024-04-08] MEDS ORDERED: traZODone 100 MG TAB PO SCH (21:00)
[2024-04-08] MEDS ORDERED: Atorvastatin 80 MG TAB PO SCH (21:00)
[2024-04-08] MEDS ORDERED: Docusate Sodium 100 MG CAP PO SCH (21:00)
[2024-04-09] VITALS (13 sets, daily range): BP systolic 107–128; BP diastolic 63–73; PULSE 60–65; TEMP 97.8–98.8
--- NOTE | 2024-04-09 08:00 | NUR ---
Patient sitting up in bed, A&Ox4. VSS. IV CDI. Denies chest pain. Call light within reach
[2024-04-09] MEDS ORDERED: Multivitamin TAB PO SCH (09:00)
--- NOTE | 2024-04-09 20:53 | NUR ---
PT AWAKE AND RESTING IN BED UPON ENTERING ROOM, WATCHING TV. SCHEDULED MEDS GIVEN PER eMAR. IV SITE IN R HAND LEAKING WHEN ATTEMPTING NS FLUSH. UNSUCCESSFUL ATTEMPT TO PLACE NEW IV SITE IN L WRIST. CHARGE NURSE TO ATTEMPT IV PLACEMENT. GLASSES IN PLACE. PT DENIES PAIN OR ANY OTHER NEEDS. CALL LIGHT WITHIN REACH.
--- NOTE | 2024-04-09 22:08 | NUR ---
PT C/O 4/10 PAIN IN GRACE ARMS AFTER MULTIPLE UNSUCCESSFUL IV ATTEMPTS.
[2024-04-10] VITALS (14 sets, daily range): BP systolic 101–134; BP diastolic 65–80; PULSE 56–88; TEMP 97.9–98.2
--- NOTE | 2024-04-10 05:58 | NUR ---
PT SLEPT WELL THROUGHOUT THE NIGHT WITH NO NEW COMPLAINTS. PLAN FOR LEXISCAN TO BE DONE TODAY. PT AGREES TO PLAN. NO FURTHER CONCERNS.
--- NOTE | 2024-04-10 08:30 | NUR ---
Pt. laying in bed. Pt. is a&OX3. Plan for Optosecuritylouisaan this am.
--- NOTE | 2024-04-10 09:30 | NUR ---
Pt. off the floor for Lexiscan at this time.
[2024-04-10] MEDS ORDERED: Regadenoson 0.08 MG/ML 5 ML SYRINGE IV SCH (09:56)
--- NOTE | 2024-04-10 11:30 | NUR ---
Pt. back to the floor from Arcadio. Pt. assessment WNL. Pt. denies further needs. Call light within reach.
--- NOTE | 2024-04-10 12:44 | NUR ---
wall worker notified patient can discharge if stress test is negative, he could discharge today. SALLY asked for PT/OT from ARPAN Burrows. PT saw pt and signed off as he is independent. SALLY notes pt has had [facility] in the past. Pt was not in the room during the morning, so SW called , Trang. reports she feels he does not need it at this time. Discharge Plan: home
[2024-04-10] MEDS ORDERED: ASPIRIN 81M81 MG/TA2 PO (14:40)
[2024-04-10] MEDS ORDERED: NITROSTAT0.4 MG/TAB SL (15:08)
--- NOTE | 2024-04-10 16:00 | NUR ---
Pt. with orders to discharge. INT discontinued from rt. hand. Reviewed and gave discharge packe to the pt. Pt. voices understanding. Pt. dressed and escorted out.
== END 2024-04-10 16:00 | disposition home or self-care (01) ==
LOC: COL.ER 18:54 → MEDICAL 23:38
PROVIDERS: Family Medicine; Physician Assistant; ADMIT Internal Medicine
DX: R07.9 Chest pain, unspecified (principal); E11.22 Type 2 diabetes mellitus with diabetic chronic kidney disease; R07.2 Precordial pain; I10 Essential (primary) hypertension; G89.4 Chronic pain syndrome; N40.0 Benign prostatic hyperplasia without lower urinary tract symptoms; F32.A Depression, unspecified
CPT/HCPCS: A9500-JZ; G0378; J1650; J1815; J2270; J2785; J3010

== ENCOUNTER 2024-05-10 19:04 | Emergency (ER) | payer OTHER ==
[~2024-05-10] VITALS: Ht 172.7 cm; Wt 88.6 kg
[~2024-05-10 19:04] MED LIST changes: +ASPIRIN 81M81 MG/TA2 PO; +NITROSTAT0.4 MG/TAB SL
[2024-05-10 19:10] VITALS: TEMP 98.3
[2024-05-10 20:53] LABS: BASO # 0.1 K/mm3 (0.0-0.2); BASO % 1.6 % (0.0-2.0); EOS # 0.3 K/mm3 (0.0-0.7); EOS % 4.3 % (0.0-4.0); GRAN # 3.6 K/mm3 (1.4-6.5); GRAN % 51.2 % (42.2-75.2); HEMATOCRIT 42.7 % (42.0-52.0); HEMOGLOBIN 15.3 g/dl (13.5-18.0); LYMPH # 2.3 K/mm3 (1.2-3.4); LYMPH % 33.3 % (20.0-51.0); MEAN CELL VOLUME 89 fl (80.0-100.0); MEAN CORPUSCULAR HEMOGLOBIN 32 pg (27-31); MEAN CORPUSCULAR HGB CONC 36 g/dl (33.0-37.0); MEAN PLATELET VOLUME 9.5 fl (7.4-10.4); MONO # 0.7 K/mm3 (0.1-0.6); MONO % 9.2 % (1.7-9.3); PLATELET COUNT 167 K/mm3 (130-400); RED BLOOD COUNT 4.79 M/mm3 (4.20-5.60); REDCELL DISTRIBUTION WIDTH-CV 11.6 % (11.5-14.5)
[2024-05-10 21:23] LABS: ALBUMIN 3.8 g/dL (3.4-4.8); BILIRUBIN,TOTAL 0.5 mg/dL (0.2-1.2); CALCIUM 9.4 mg/dL (8.4-10.2); CREATININE, serum 1.23 mg/dL (0.72-1.25); POTASSIUM 3.9 mEq/L (3.5-4.5); TOTAL PROTEIN 7.3 g/dl (6.2-8.1)
[2024-05-10] MEDS ORDERED: Morphine 4 MG/ML VIAL IV ONE (21:45)
[2024-05-10 21:58] VITALS: BP 133/76; PULSE 64
[2024-05-10] MEDS ORDERED: Ondansetron 4 MG/2 ML VIAL IV ONE (22:00)
== END 2024-05-10 21:58 | disposition home or self-care (01) ==
LOC: COL.ER 19:04
PROVIDERS: Personal Emergency Response Attendant
DX: K80.50 Calculus of bile duct without cholangitis or cholecystitis without obstruction (principal)
CPT/HCPCS: J2270; J2405